=== PATIENT | male | born 1980 | race Caucasian/White ===

== ENCOUNTER 2020-11-08 08:04 | Emergency (ER) | payer BC, SELFPAY ==
--- NOTE | 2020-11-08 08:08 | ED.URI ---
HPI - URI/Sore Throat General Chief Complaint: Upper Respiratory Infection Stated Complaint: SORE THROAT Time Seen by Provider: 11/08/20 08:07 Source: patient Mode of arrival: ambulatory Limitations: no limitations History of Present Illness HPI Narrative: Patient is a 40 year old male who presents complaining of sore throat x 3 days and mild cough. He also reports small amount of nasal drainage and intermittent congestion. Patient denies fever, shortness of breath, ear pain, facial pain, or other complaints. Patient reports he recieved both doses of Pfizer vaccine over 2 weeks ago. He denies body aches. He reports a history of seasonal allergies and reports taking Zyrtec daily. He denies other significant medical history. MD elicited complaint: sore throat Related Data Home Medications Medication Instructions Recorded Confirmed cetirizine 5 mg-pseudoephedrine ER 1 tablet PO DAILY PRN tablet 09/14/20 09/14/20 120 mg tablet,extended release,12hr Allergies Allergy/AdvReac Type Severity Reaction Status Date / Time amoxicillin Allergy Unknown Nausea Verified 07/25/17 21:20 No Known Allergies Allergy Unverified 05/20/17 16:40 Review of Systems Review of Systems: Narrative: CONSTITUTIONAL: Denies fever, chills, or sweats. EYES: Denies visual changes, redness, or discharge. ENT: Reports sore throat, intermittent rhinorrhea and congestion CARDIOVASCULAR: Denies chest pain, palpitations, or edema. RESPIRATORY: Reports intermittent cough, denies dyspnea. GASTROINTESTINAL: Denies abdominal pain, nausea, vomiting, or diarrhea. GENITOURINARY: Denies dysuria or hematuria. SKIN: Denies rash or itching. MUSCULOSKELETAL: Denies back pain, joint pain, or myalgia. NEUROLOGIC: Denies headache, numbness, dizziness, or weakness. PSYCHIATRIC: Denies anxiety or depression. [facility] Past Medical History Medical History Family history of prostate cancer Hyperlipidemia, unspecified Surgical History Surgical History H/O adenoidectomy H/O hernia repair History of tonsillectomy Family History Family History Mother Patient's mother is in good health COPD (chronic obstructive pulmonary disease) Father Heart disease Malignant neoplasm of prostate Social History Social History (Updated 11/08/20 @ 10:04 by ROS Light) Smoking status: Never smoker Alcohol intake: current Alcohol use details: Occasional Substance use: never Living arrangements: with family Occupation/Education: occupation Comments At the time of signature, I have reviewed and agree with nursing past medical, surgical, social, and family history unless otherwise noted. Please see nursing chart for further information. There is no relevant family history pertinent to the presenting complaint. Exam Narrative: Exam Narrative: GENERAL: Well-appearing, well-nourished, and in no acute distress. HEAD: Normocephalic, atraumatic. EYES: EOMI. No redness or drainage. Conjunctiva are normal. ENT: Mucous membranes pink and moist. Nares clear. TMs normal bilaterally. Throat with erythema and edema, no exudate. Uvula midline. No palpable sinus tenderness NECK: AROM. Supple. No lymphadenopathy. CHEST: No respiratory distress. Clear to auscultation. HEART: Regular rate and rhythm. EXTREMITIES: Normal range of motion. SKIN: Warm, dry, no rash. NEURO: No focal deficits. Alert and oriented x3. Gait steady. PSYCH: Normal affect. No signs of depression or anxiety. Course Vital Signs Vital signs: Vital Signs Temperature 36.3 C L 11/08/20 08:13 Pulse Rate 101 H 11/08/20 08:13 Respiratory Rate 16 11/08/20 08:13 Blood Pressure 110/82 11/08/20 08:13 Pulse Oximetry 98 11/08/20 08:13 Temperature 36.3 C L 11/08/20 08:13 Pulse Rate 101 H 11/08/20 08:13 Respirato
[2020-11-08 08:13] VITALS: BP 110/82; PULSE 101; RESP 16; TEMP 36.3; O2SAT 98
== END 2020-11-08 08:45 | disposition home or self-care (01) ==
PROVIDERS: Emergency Provider Nurse Practitioner; PCP Internal Medicine
DX: J03.90 Acute tonsillitis, unspecified (principal); J06.9 Acute upper respiratory infection, unspecified; E78.5 Hyperlipidemia, unspecified
CPT/HCPCS: 87880; 99213; G0463

== ENCOUNTER 2021-07-24 10:01 | Emergency (ER) | payer BC, SELFPAY ==
--- NOTE | 2021-07-24 10:05 | ED.URI ---
HPI - URI/Sore Throat General Chief Complaint: Upper Respiratory Infection Stated Complaint: Sore throat Time Seen by Provider: 07/24/21 10:17 Source: patient and RN notes reviewed Mode of arrival: ambulatory Limitations: no limitations History of Present Illness HPI Narrative: 40-year-old male presents with concern for sore throat. Reports sore throat started yesterday. Reports mild headache this morning. He reports he typically takes Zyrtec-D for chronic sinus problems, he has not taken that in the last several days. He also reports recent travel on a private chartered plane. He reports he has been vaccinated for Covid, had a booster shot and flu shot 2 weeks ago. He denies fever, bodies, chills, sweats, nausea, vomiting, diarrhea, cough, shortness of breath. MD elicited complaint: cough and sore throat Related Data Allergies Allergy/AdvReac Type Severity Reaction Status Date / Time amoxicillin Allergy Unknown Nausea Verified 07/25/17 21:20 No Known Allergies Allergy Unverified 05/20/17 16:40 Review of Systems Review of Systems: CONSTITUTIONAL: Denies malaise, chills, sweats, or fever. EYES: Denies visual changes, redness, or discharge. ENT: Denies rhinorrhea, congestion, sinus pain, otalgia. Sore throat. CARDIOVASCULAR: Denies chest pain, palpitations, or edema. RESPIRATORY: Denies cough. Denies dyspnea. GASTROINTESTINAL: Denies abdominal pain, nausea, vomiting, diarrhea SKIN: Denies rash or itching. MUSCULOSKELETAL: Denies myalgia. NEUROLOGIC: Reports headache. All systems reviewed & are unremarkable except as noted in HPI and below PMFSH Past Medical History Medical History Family history of prostate cancer Hyperlipidemia, unspecified Surgical History Surgical History H/O adenoidectomy H/O hernia repair History of tonsillectomy Family History Family History Mother Patient's mother is in good health COPD (chronic obstructive pulmonary disease) Father Heart disease Malignant neoplasm of prostate Social History Social History (Updated 11/08/20 @ 10:04 by ROS Light) Smoking status: Never smoker Alcohol intake: current Alcohol use details: Occasional Substance use: never Comments At time of signature, agree with nursing past medical, surgical, social and family history. There is no relevant family history pertinent to the presenting complaint Exam Narrative: GENERAL: Well-appearing, well-nourished, and in no acute distress. HEAD: Normocephalic EYES: PERRLA, conjunctivae clear ENT: Nares clear. Mucous membranes moist. TM pearly nelson with sharp light reflex bilaterally; no tragal tenderness. Oropharynx not erythematous without lesions. Tonsils not enlarged and without exudate, no drooling, no hoarseness, no trismus, uvula midline. NECK: Supple. No lymphadenopathy CHEST: Clear to auscultation, breath sounds equal. No wheezing, rhonchi, rales, or stridor. No respiratory distress, speaks in full sentences. HEART: Regular rate and rhythm. No murmur heard. SKIN: Warm, dry, no rash. NEURO: Alert and oriented x3. PSYCH: Normal mood and affect Course Course Emergency Course: Patient is aware of diagnosis, understands and agrees to treatment plan. Anticipatory guidance given. Patient agrees to follow-up as directed and is aware of reasons to seek care at the emergency department. Portions of this record may have been created with voice recognition software Level of Care: Express Care Visit Vital Signs Vital signs: Reviewed. MDM - URI/Sore Throat MDM Narrative Medical decision making narrative: Differential diagnosis considered: Aly virus, strep pharyngitis, allergic rhinitis, upper respiratory tract infection, sinusitis, rhinosinusitis, nasopharyngitis. viral pharyngitis, otitis media, otitis externa, pneumonia,
[2021-07-24 10:12] VITALS: BP 144/86; PULSE 71; RESP 16; TEMP 36.2; O2SAT 98
[2021-07-25 14:39] LABS: SARS-CoV-2 RNA PCR Negative
== END 2021-07-24 10:46 | disposition home or self-care (01) ==
PROVIDERS: Emergency Provider Nurse Practitioner
DX: J02.9 Acute pharyngitis, unspecified (principal); Z20.822 Contact with and (suspected) exposure to COVID-19; E78.5 Hyperlipidemia, unspecified
CPT/HCPCS: 87081; 87880; 99213; C9803; G0463; U0003; U0005

== ENCOUNTER 2022-04-23 09:29 | Outpatient (CLI) | payer BC, SELFPAY ==
[2022-04-23 18:41] LABS: Alanine Aminotransferase 27 U/L (6-50); Albumin Level 4.4 g/dL (3.5-5.1); Alkaline Phosphatase 27 U/L (38-126); Anion Gap 11 mmol/L (8-16); Aspartate Amino Transferase 51 U/L (17-59); Bilirubin,Total 0.4 mg/dL (0.2-1.3); Blood Urea Nitrogen 14 mg/dL (9-20); Calcium 9.2 mg/dL (8.4-10.2); Carbon Dioxide 29 mmol/L (22-30); Chloride 100 mmol/L (98-107); Cholesterol 251 mg/dL (0-200); Estimated Glomerular Filt Rate > 60; Glucose 104 mg/dL (65-110); HDL Direct 38 mg/dL; Sodium 140 mmol/L (137-145); Triglycerides 244 mg/dL (<150)
[2022-04-23 18:48] LABS: Basophils Absolute Auto 0.1 K/mm3 (0.0-0.1); Basophils Percent Auto 1.3 % (0.2-1.2); Eosinophils Absolute Auto 0.4 K/mm3 (0-0.3); Eosinophils Percent Auto 6.9 % (0-4.4); Hematocrit 44.4 % (42.0-52.0); Hemoglobin 14.4 g/dL (14.0-18.0); Immature Granulocyte Absolute 0.01 K/mm3 (0.00-0.031); Immature Granulocyte Percent A 0.2 % (0-0.5); Lymphocytes Absolute Auto 1.31 K/mm3 (0.9-3.2); Lymphocytes Percent Auto 25.2 % (18.3-44.2); Mean Corpuscular HGB Conc 32.4 g/dl (32-36); Mean Corpuscular Hemoglobin 30.5 pg (26-34); Mean Corpuscular Volume 94.1 fl (80-100); Mean Platelet Volume 10.5 fl (7.4-10.4); Monocytes Absolute Auto 0.5 K/mm3 (0.1-0.6); Neutrophils Percent Auto 57.4 % (45.5-73.1); Platelet Count Result 234 k/mm3 (150-375); Red Blood Count 4.72 M/mm3 (4.6-6.20); Red Cell Distribution Width 12.5 % (11.5-14.5); White Blood Count 5.2 K/mm3 (4.5-10.0)
[2022-04-23 18:52] LABS: LDL Cholesterol Direct 146 mg/dL
== END 2022-04-23 09:30 | disposition home or self-care (01) ==
LOC: ANHGOSHLAB 09:32
PROVIDERS: PCP Internal Medicine; Visit Provider Clinical Nurse Specialist
DX: E78.5 Hyperlipidemia, unspecified (principal); R03.0 Elevated blood-pressure reading, without diagnosis of hypertension; Z13.228 Encounter for screening for other metabolic disorders
CPT/HCPCS: 36415; 80053; 80061; 84443; 85025

== ENCOUNTER 2025-02-16 09:37 | Outpatient (CLI) | payer BC, SELFPAY ==
--- OUTSIDE RECORDS SUMMARY | 2025-02-16 09:58 | XMS_ITS | Continuity of Care Document ---
Author Organization [facility] Address [address] [place] [address] [place] [address] Phone Care Team Providers Care Building Rigger Name Role Phone Maximiliano Gordillo MD Unavailable Unavailable Allergies, Adverse Reactions, Alerts Substance Reaction Status Criticality No Known Allergies Active No Inform ation Procedures Procedure Date PREV VISIT, EST, AGE 18-39 OFFICE/OUTPATIENT VISIT, EST Advance Directives Directive Yes / No Effective Date File Name No Information Encounters Encounter Description Practice Location Reason(s) For Visit Diagnoses Date Provider Providers Copied on Encounter PREV VISIT, EST, AGE 18-39 [facility], [address] [place], [id number], [place] tel:[phone] [facility] Physical (chief complaint) Dietary surveillance and counselingRoutine Medical ExamPharyngitis, AcuteSleep ApneaRoutine Medical Exam [address], [facility] [place], [place], [id number] , [place]. tel:[phone] Referring Provider: Maximiliano Gordillo, [address] [facility] [place], [place], [id number]. tel:[phone] Family History Family Member Type Diagnosis Age At Onset Father Problem (finding) Coronary artery disease 65 Mother Problem (finding) Alive and well Brother Problem (finding) Alive and well Payers Payer name Insurance type Covered republican ID Authoriza tion(s) No Information Social History Type Description Quantity Date Captured Comments Alcohol Use Details Caffeine Use Details Unknown Tobacco Use Status No Information Smoking Status Never smoker Non-Smoking Tobacco Use Details : No Details Available : No Details Available Sex Male Vital Signs Date / Time: Height Weight BMI Pulse Rate Blood Pressure Temperature Respiratory Rate Body Surface Area Head Circumference BMI percentile Pulse Ox Inhaled Ox 9:15 AM 75.00 in 214.00 lbs 26.7 5 kg/m eter (2) 88 /min 123/70 mm[Hg] 97.0 F 16 /min Chief Complaint And Reason For Visit From encounter dated '07/07/2014 09:15'. Physical (chief complaint) Plan Of Treatment Date Type Action Status No Information History Of Present Illness Encounter Date Complaint History Of Prese nt Illness No Information Instructions Date Instruction Additional Infor mation Physical activity counseling Rel ated to Dietary surveillance counseling Decrease caloric intake Related to Dietary surveillance counseling Assessments Type Assessment Date No Information Mental Status Date Cognitive Assessment Orientation - [place] ed to time, place, person, situation.
[2025-02-16 20:06] LABS: Alanine Aminotransferase 23 U/L (6-50); Albumin Level 4.5 g/dL (3.5-5.1); Alkaline Phosphatase 28 U/L (38-126); Anion Gap 9 mmol/L (4-12); Aspartate Amino Transferase 37 U/L (17-59); Bilirubin,Total 0.4 mg/dL (0.2-1.3); Blood Urea Nitrogen 13 mg/dL (9-20); Calcium 9.5 mg/dL (8.4-10.2); Carbon Dioxide 27 mmol/L (22-30); Chloride 102 mmol/L (98-107); Cholesterol 209 mg/dL (0-200); Estimated Glomerular Filt Rate > 60; Glucose 106 mg/dL (65-110); HDL Direct 48 mg/dL; Hematocrit 47.2 % (42.0-52.0); Hemoglobin 15.2 g/dL (14.0-18.0); Immature Granulocyte Percent A 0.3 % (0-0.5); Lymphocytes Absolute Auto 1.37 K/mm3 (0.9-3.2); Mean Corpuscular HGB Conc 32.2 g/dl (32-36); Mean Corpuscular Hemoglobin 31.1 pg (26-34); Mean Corpuscular Volume 96.5 fl (80-100); Nucleated Red Blood Cells Absolute Auto 0.000 K/mm3 (0.0-0.012); Nucleated Red Blood Cells Perc 0.0 % (0.0-0.2); Platelet Count Result 240 k/mm3 (150-375); Potassium 4.5 mmol/L (3.4-5.0); Red Blood Count 4.89 M/mm3 (4.6-6.20); Sodium 138 mmol/L (137-145); Total Protein 7.7 g/dL (6.3-8.2); Triglycerides 149 mg/dL (<150); White Blood Count 6.0 K/mm3 (4.5-10.0)
== END 2025-02-16 09:38 | disposition home or self-care (01) ==
LOC: ANHGOSHLAB 09:38
PROVIDERS: PCP Internal Medicine; Visit Provider Nurse Practitioner
DX: E78.2 Mixed hyperlipidemia (principal); Z13.228 Encounter for screening for other metabolic disorders
CPT/HCPCS: 36415; 80053; 80061; 85025